=== PATIENT | female | born 1965 | race Hispanic/Latino ===

== ENCOUNTER 2017-04-14 13:26 | Emergency (ER) | payer OTHER ==
[2017-04-14] MEDS ORDERED: methylPREDNISolone Sod Succ/PF 125 MG/2 ML VIAL ONE (13:31)
[2017-04-14] MEDS ORDERED: diphenhydrAMINE HCl 50 MG/ML 1 ML VIAL ONE (13:31)
== END 2017-04-14 14:57 | disposition home or self-care (01) ==
LOC: BURERS 13:26
DX: T63.461A Toxic effect of venom of wasps, accidental (unintentional), initial encounter (principal); I10 Essential (primary) hypertension; F41.9 Anxiety disorder, unspecified
CPT/HCPCS: 96372; J1200; J2930

== ENCOUNTER 2020-11-10 18:41 | Emergency (ER) | payer OTHER | END 2020-11-10 19:45 | disposition left against medical advice (07) | LOC: BURERS 18:41 | DX: Z53.21 Procedure and treatment not carried out due to patient leaving prior to being seen by health care provider (principal) ==